=== PATIENT | female | born 1950 | race Caucasian/White ===

== ENCOUNTER → 2016-11-29 | Outpatient (CLI) | payer OTHER ==
[~2016-11-29] MED LIST: ADV250INH INH; ASPI1TAB PO; AUGM500T34 PO; BIOT10005 PO; DURA50DI2 TD; GABA250S6 PO; HYDR1SOL PO; LABE20TAB PO; LEVO25TA5 PO; NORT25CA2 PO; RANI15ELUD PO; VALS1TAB48 PO; ZOFR4SOL PO; [UNRECOGNIZED DRUG - OTHER] TOP
[2016-11-29 13:48] LABS: BASO % 0.3 % (0.0-1.0); EOS # 0.1 K/mm3 (0.0-0.50); LARGE UNSTAINED CELL # 0.1 K/mm3 (0.0-0.4); LARGE UNSTAINED CELL % 2.9 % (0.0-4.0); LYMPH # 0.6 K/mm3 (1.5-4.5); LYMPH % 13.6 % (24.0-44.0); MEAN CORPUSCULAR HEMOGLOBIN 31.5 pg (27.0-33.0); MEAN CORPUSCULAR HGB CONC 33.5 g/dl (32.0-36.5); MEAN CORPUSCULAR VOLUME 93.9 fl (80.0-96.0); MONO # 0.3 K/mm3 (0.0-0.8); MONO % 6.2 % (0.0-5.0); NEUTROPHILS # 3.5 K/mm3 (1.8-7.7); PLATELET COUNT, AUTOMATED 289 k/mm3 (150-450); RED CELL DISTRIBUTION WIDTH 13.6 % (11.5-14.5); WHITE BLOOD COUNT 4.8 K/mm3 (4.0-10.0)
[2016-11-29 13:58] LABS: ALBUMIN/GLOBULIN RATIO 1.14 (1.00-1.93); BILIRUBIN,TOTAL 0.5 MG/DL (0.2-1.0); CALCIUM LEVEL 9.6 MG/DL (8.8-10.2); CREATININE FOR GFR 1.51 MG/DL (0.55-1.02); GLOMERULAR FILTRATION RATE 36.9 (>45); MAGNESIUM LEVEL 1.9 MG/DL (1.8-2.4); TOTAL PROTEIN 7.5 GM/DL (6.4-8.2)
== END ==
LOC: M WUC 10:41
PROVIDERS: ATTEND Family Medicine
DX: C06.9 Malignant neoplasm of mouth, unspecified (principal); D64.9 Anemia, unspecified; E83.42 Hypomagnesemia

== ENCOUNTER 2016-12-02 21:17 | Emergency (ER) | payer OTHER ==
[~2016-12-02] VITALS: Ht 160 cm; Wt 45.4 kg
[~2016-12-02 21:17] MED LIST changes: +BIOT10005 GT; -BIOT10005 PO; +LEVO25TA5 GT; -LEVO25TA5 PO; +ZOFR4SOL GT; -ZOFR4SOL PO
[2016-12-02] MEDS ORDERED: ALBU17IN INH (22:15)
[2016-12-02] MEDS ORDERED: TRAZ50TA4 GT (22:15)
[2016-12-02] MEDS ORDERED: [UNRECOGNIZED DRUG - CODE] GT (22:17)
[2016-12-02] MEDS ORDERED: VITA200016 GT (22:26)
[2016-12-02 23:27] VITALS: BP 143/78
[2016-12-04] MEDS ORDERED: METAL LOCK LOOP XX ONE (03:00)
[2016-12-07] MEDS ORDERED: OSMOLIQ7 GT (10:07)
[2016-12-07] MEDS ORDERED: LABE20TAB GT (10:07)
[2016-12-07] MEDS ORDERED: BENA25CA4 GT (10:07)
[2016-12-07] MEDS ORDERED: [UNRECOGNIZED DRUG - CODE] TOP (10:07)
[2016-12-07] MEDS ORDERED: ACET-71 GT (10:07)
== END 2016-12-02 23:28 | disposition home or self-care (01) ==
LOC: M ED 21:17
DX: Z43.1 Encounter for attention to gastrostomy (principal); Z92.240 Personal history of inhaled steroid therapy; Z79.899 Other long term (current) drug therapy

== ENCOUNTER 2016-12-06 12:40 | Emergency (ER) | payer OTHER ==
[~2016-12-06] VITALS: Ht 160 cm; Wt 45.4 kg
[~2016-12-06 12:40] MED LIST changes: +ALBU17IN INH; +TRAZ50TA4 GT; +VITA200016 GT; +[UNRECOGNIZED DRUG - CODE] GT
[2016-12-06 12:41] VITALS: BP 123/66
[2016-12-07] MEDS ORDERED: OSMOLIQ7 GT (10:07)
[2016-12-07] MEDS ORDERED: LABE20TAB GT (10:07)
[2016-12-07] MEDS ORDERED: [UNRECOGNIZED DRUG - CODE] TOP (10:07)
[2016-12-07] MEDS ORDERED: BENA25CA4 GT (10:07)
[2016-12-07] MEDS ORDERED: ACET-71 GT (10:07)
== END 2016-12-06 16:09 | disposition left against medical advice (07) ==
LOC: M ED 13:27
DX: Z53.21 Procedure and treatment not carried out due to patient leaving prior to being seen by health care provider (principal)

== ENCOUNTER → 2016-12-09 | Outpatient (CLI) | payer OTHER ==
[~2016-12-09] VITALS: Ht 160 cm; Wt 45.4 kg
[~2016-12-09] MED LIST changes: +ACET-71 GT; +BENA25CA4 GT; +LABE20TAB GT; +OSMOLIQ7 GT; +[UNRECOGNIZED DRUG - CODE] TOP
[2016-12-09 12:30] VITALS: BP 111/72
== END ==
LOC: M OPP 12:28 → EDSTATUS 15:30
PROVIDERS: ATTEND Surgery
DX: K94.23 Gastrostomy malfunction (principal); E03.9 Hypothyroidism, unspecified; I10 Essential (primary) hypertension; Z85.810 Personal history of malignant neoplasm of tongue; Z79.899 Other long term (current) drug therapy

== ENCOUNTER → 2017-03-08 | Outpatient (CLI) | payer MEDICARE, OTHER ==
--- NOTE | 2017-03-08 12:14 | REPMRS ---
Patient History The patient states she had a clinical breast exam in 03/2017. Patient is postmenopausal and has history of other cancer at age 64. No known family history of cancer. Benign excisional biopsy of the left breast, 1979. Taking unspecified hormones for 2 years. Digital Woman Screen Mammo: March 08, 2017 - Exam #: [id number] Bilateral CC and MLO view(s) were taken. Technologist: Nini Silva, Technologist Prior study comparison: March 03, 2016, digital woman screen mammo performed at [facility] [facility] [place]. July 06, 2013, digital woman screen mammo performed at [facility] [place]. FINDINGS: The breast tissue is heterogeneously dense. This may lower the sensitivity of mammography. There is a moderate amount of heterogeneously dense fibroglandular tissue which is fairly symmetric. There is no interval development of dominant mass, architectural distortion, or clustered microcalcification typical of malignancy. There has been no change in the appearance of the mammogram from the prior studies. ASSESSMENT: BI-RADS/ACR category 1 mammogram. Negative. Recommendation Routine screening mammogram of both breasts in 1 year (for women over age 40). This mammogram was interpreted with the aid of an FDA-approved computer-aided dectection system. Electronically Signed By: Edgar Moreno MD 03/08/17 [id number]
== END ==
LOC: M WHC 11:05
PROVIDERS: ATTEND Nurse Practitioner Family
DX: Z01.419 Encounter for gynecological examination (general) (routine) without abnormal findings (principal); Z12.31 Encounter for screening mammogram for malignant neoplasm of breast; Z78.0 Asymptomatic menopausal state; Z92.89 Personal history of other medical treatment; Z12.12 Encounter for screening for malignant neoplasm of rectum
CPT/HCPCS: 82270; G0101; G0202

== ENCOUNTER → 2017-03-30 | Outpatient (CLI) | payer MEDICARE, OTHER ==
[~2017-03-30] MED LIST changes: -ACET-71 GT; +ACET1TAB16 GT; -BIOT10005 GT; +BIOT10008 GT; +PRED10TA2 PO; +PRED20TA PO; +PRED5TA PO; +THERTAB GT; +TRAZ50TA11 GT; -TRAZ50TA4 GT; +[UNRECOGNIZED DRUG - CODE] TOP; -[UNRECOGNIZED DRUG - OTHER] TOP
[2017-03-30 17:45] LABS: ALBUMIN 4.1 GM/DL (3.2-5.2); CALCIUM LEVEL 9.5 MG/DL (8.8-10.2); CREATININE FOR GFR 1.45 MG/DL (0.55-1.02); GLOMERULAR FILTRATION RATE 38.7 (>45); PHOSPHORUS LEVEL 3.5 MG/DL (2.5-4.9); POTASSIUM SERUM 4.8 MEQ/L (3.5-5.1)
[2017-03-30 20:00] LABS: BASO % 1.1 % (0.0-1.0); EOS # 0.1 K/mm3 (0.0-0.50); EOS % 2.2 % (0.0-3.0); LARGE UNSTAINED CELL # 0.1 K/mm3 (0.0-0.4); LARGE UNSTAINED CELL % 2.3 % (0.0-4.0); LYMPH # 0.9 K/mm3 (1.5-4.5); LYMPH % 18.6 % (24.0-44.0); MEAN CORPUSCULAR HEMOGLOBIN 32.6 pg (27.0-33.0); MEAN CORPUSCULAR HGB CONC 33.6 g/dl (32.0-36.5); MEAN CORPUSCULAR VOLUME 97.1 fl (80.0-96.0); MONO # 0.3 K/mm3 (0.0-0.8); MONO % 6.9 % (0.0-5.0); NEUTROPHILS # 3.2 K/mm3 (1.8-7.7); PLATELET COUNT, AUTOMATED 344 k/mm3 (150-450); RED CELL DISTRIBUTION WIDTH 13.8 % (11.5-14.5); WHITE BLOOD COUNT 4.6 K/mm3 (4.0-10.0)
== END ==
LOC: M WUC 12:13
PROVIDERS: ATTEND Internal Medicine Nephrology
DX: N18.3 Chronic kidney disease, stage 3 (moderate) (principal); D63.1 Anemia in chronic kidney disease; N25.81 Secondary hyperparathyroidism of renal origin; E55.9 Vitamin D deficiency, unspecified

== ENCOUNTER 2017-04-17 12:20 | Inpatient (IN) | payer MEDICARE, OTHER ==
[~2017-04-17] VITALS: Ht 160 cm; Wt 46.3 kg
[~2017-04-17 12:20] MED LIST changes: -PRED10TA2 PO; -PRED20TA PO; -PRED5TA PO; -THERTAB GT
[2017-04-17] MEDS ORDERED: ASPIRIN 81 MG CHEW TABLET PO ONE (12:30)
[2017-04-17] MEDS ORDERED: THERTAB GT (12:39)
--- NOTE | 2017-04-17 12:56 | REP ---
Chest one-view HISTORY: Chest pain Comparison: 08/12/2010 The lungs are clear. The heart is normal in size. The pulmonary vasculature is normal in appearance. Impression: No acute disease. Signed by Apollo Watkins MD 04/17/2017 12:48 P
[2017-04-17] MEDS ORDERED: IPRATROPIUM 0.5MG/ALBUTEROL 2.5MG INH SOL UD 3ML (DUONEB)(J7620) NEB ONE (13:00)
[2017-04-17] MEDS ORDERED: ALBUTEROL SULFATE 2.5 MG/0.5 ML INH NEB SOLN INH ONE (13:00)
[2017-04-17] MEDS ORDERED: methylPREDNISolone INJ 125 MG/2 ML VIAL (J2930) IV ONE (13:00)
[2017-04-17 13:09] LABS: BASO % 0.2 % (0.0-1.0); EOS % 0.7 % (0.0-3.0); LARGE UNSTAINED CELL # 0.2 K/mm3 (0.0-0.4); LARGE UNSTAINED CELL % 2.7 % (0.0-4.0); LYMPH # 0.7 K/mm3 (1.5-4.5); LYMPH % 5.7 % (24.0-44.0); MEAN CORPUSCULAR HEMOGLOBIN 32.7 pg (27.0-33.0); MEAN CORPUSCULAR HGB CONC 34.3 g/dl (32.0-36.5); MEAN CORPUSCULAR VOLUME 95.3 fl (80.0-96.0); MONO # 0.6 K/mm3 (0.0-0.8); NEUTROPHILS % 83.7 % (36.0-66.0); PLATELET COUNT, AUTOMATED 252 k/mm3 (150-450); RED CELL DISTRIBUTION WIDTH 13.8 % (11.5-14.5); WHITE BLOOD COUNT 8.3 K/mm3 (4.0-10.0)
[2017-04-17] MEDS: NS 1,000 ML IV ONE ×2 (13:29→14:00)
[2017-04-17 13:32] LABS: ALBUMIN 3.4 GM/DL (3.2-5.2); ALBUMIN/GLOBULIN RATIO 0.76 (1.00-1.93); ALKALINE PHOSPHATASE 179 U/L (45-117); ALT/SGPT 57 U/L (12-78); ANION GAP 6 MEQ/L (8-16); AST/SGOT 56 U/L (15-37); BILIRUBIN,DIRECT 0.1 MG/DL (0.0-0.2); BILIRUBIN,TOTAL 0.4 MG/DL (0.2-1.0); BLOOD UREA NITROGEN 39 MG/DL (7-18); CALCIUM LEVEL 9.7 MG/DL (8.8-10.2); CARBON DIOXIDE LEVEL 31 MEQ/L (21-32); CHLORIDE LEVEL 88 MEQ/L (98-107); CREATININE FOR GFR 1.61 MG/DL (0.55-1.02); GLOMERULAR FILTRATION RATE 34.3 (>45); GLUCOSE, FASTING 84 MG/DL (80-110); POTASSIUM SERUM 4.4 MEQ/L (3.5-5.1); SODIUM LEVEL 125 MEQ/L (136-145); TOTAL PROTEIN 7.9 GM/DL (6.4-8.2)
[2017-04-17] MEDS ORDERED: ISOVUE-370 76% 100ML VIAL (Q9967) As Ordered ONE (14:23)
[2017-04-17 16:17] LABS: FREE T4 1.17 NG/DL (0.76-1.46)
[2017-04-17] MEDS ORDERED: MORPHINE 2 MG/ML 1ML SYRINGE IV PRN (16:30)
[2017-04-17] MEDS ORDERED: IPRATROPIUM 0.5MG/ALBUTEROL 2.5MG INH SOL UD 3ML (DUONEB)(J7620) NEB PRN (17:00)
[2017-04-17 17:07] LABS: RETIC HEMOGLOBIN CONTENT CHr 29.1 PG (24-36); RETICULOCYTE ABSOLUTE ADVIA212 58 x10(9)/L (17-77)
[2017-04-17 17:12] LABS: PERCENT SATURATION 5.6 % (13.2-37.4)
[2017-04-17 18:45] VITALS: BP 137/63
--- NOTE | 2017-04-17 19:31 | ECGEPIP ---
Stationary ECG Study [facility] - ED Test Date: 2017-04-17 Pat Name: SOHEILA WORRELL Department: Room: - Gender: F Environmental Conflict Manager: joseph : 1950 Requested By: Pierce Mcgee Order Number: [id number] Reading MD: Pierce Mcgee Measurements Intervals [place] Rate: 81 P: 58 NH: 132 QRS: 16 QRSD: 97 T: 10 QT: 360 QTc: 419 Interpretive Statements SINUS RHYTHM LOW QRS VOLTAGE IN EXTREMITY LEADS DELAYED R WAVE PROGRESSION NO PRIOR ECG FOR COMPARISON Electronically Signed On 04-17-2017 19:30:53 EDT by Pierce Mcgee
[2017-04-17] MEDS: IPRATROPIUM 0.5MG/ALBUTEROL 2.5MG INH SOL UD 3ML (DUONEB)(J7620) NEB SCH (20:00)
[2017-04-17 20:23] LABS: ANION GAP 8 MEQ/L (8-16); BLOOD UREA NITROGEN 43 MG/DL (7-18); CALCIUM LEVEL 8.5 MG/DL (8.8-10.2); CARBON DIOXIDE LEVEL 27 MEQ/L (21-32); CHLORIDE LEVEL 87 MEQ/L (98-107); CREATININE FOR GFR 1.72 MG/DL (0.55-1.02); GLOMERULAR FILTRATION RATE 31.8 (>45); GLUCOSE, FASTING 325 MG/DL (80-110); POTASSIUM SERUM 4.4 MEQ/L (3.5-5.1); SODIUM LEVEL 122 MEQ/L (136-145)
[2017-04-17] MEDS: methylPREDNISolone INJ 125 MG/2 ML VIAL (J2930) IV SCH (20:32)
[2017-04-17] MEDS: HEPARIN SOD (PORCINE) 5000 UNITS/ML VIAL SC SCH (20:33)
[2017-04-17 20:46] VITALS: BP 111/67
[2017-04-17] MEDS: LABETALOL 200 MG TAB GT SCH (20:47)
[2017-04-17] MEDS: traZODone 50 MG TAB GT SCH (20:48)
[2017-04-17] MEDS: diphenhydrAMINE 12.5MG/5ML ELIXIR UDC GT SCH (20:49)
[2017-04-17] MEDS: ACETAMINOPH W/CODEINE #3 TAB UD GT PRN (20:49)
--- NOTE | 2017-04-17 21:39 | ECGEPIP ---
Stationary ECG Study [facility] Test Date: 2017-04-17 Pat Name: SOHEILA WORRELL Department: Room: [facility] [place] Gender: F Dye Expert: martha : 1950 Requested By: LUIS ALBERTO DALEY Order Number: [id number] Reading MD: Chaka Jimenez Measurements Intervals [place] Rate: 77 P: 50 ND: 140 QRS: 16 QRSD: 96 T: 22 QT: 393 QTc: 446 Interpretive Statements SINUS RHYTHM LOW QRS VOLTAGE NO CHANGE FROM EARLIER THE SAME DAY Electronically Signed On 04-17-2017 21:39:20 EDT by Chaka Jimenez
--- NOTE | 2017-04-17 21:59 | HPE ---
DATE OF ADMISSION: 04/17/2017 PRIMARY CARE PROVIDER: Dr. Rosas Carreno TOMATO GRADER: Dr. Wan CHIEF COMPLAINT: The patient presented to the emergency room with chest tightness and back tightness in the last 24 to 48 hours. She also had some associated cough and shortness of breath. While in the emergency room, she did receive nebulizer treatments and Solu-Medrol and had good improvement in her symptoms; however, she was noted to have a sodium of 125. Although she has had hyponatremia for quite some time, this is lower than expected despite the recent initiation of salt tablets, as such the hospitalist service was called for admission. At the present time, the patient complains of a headache and complains that she has not received her feeding per tube as of yet, but otherwise feels better than when she arrived. She denies any chest pressure or shortness of breath at the present time. PAST MEDICAL HISTORY: 1. Hypertension. 2. Chronic kidney disease, baseline creatinine of approximately 1.5. 3. Osteoarthritis. 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 5. Chronic obstructive pulmonary disease (COPD) documented. No spirometry available. 6. Hypothyroidism. HOME MEDICATIONS: - Ventolin HFA two puffs twice a day as needed for shortness of breath - Advair Diskus 250/50 inhaled twice a day - Polysporin 500/10,000 units topical as needed for redness or irritation - vitamin H - Biotin as per the patient - Zofran 4 mg solution per G tube in the morning - Osmolite 1.2 calories five cans per day - Thermotabs one tablet per G tube at night - Tylenol #3 300/30 one tablet three times a day as needed for pain - Benadryl 25 mg per G tube at night - labetalol 200 mg per G tube twice a day - Synthroid 25 mcg per G tube in the morning - trazodone 50 mg per G tube at night - vitamin D 2000 units per G tube daily SURGICAL HISTORY: Right kidney biopsy, left adrenalectomy due to mass, trach and PEG placement, oral surgery, tubal ligation, colonoscopy. ALLERGIES: The patient has no known drug allergies. SOCIAL HISTORY: She is a former smoker. Denies alcohol. She lives with her and son. FAMILY HISTORY: Noncontributory. REVIEW OF SYSTEMS: Negative other than history of present illness. PHYSICAL EXAMINATION: VITAL SIGNS: Temperature 99.2, pulse 83, respiratory rate 18, blood pressure 103/62, oxygen saturation 99% on room air. GENERAL: She is a slim, cachectic, elderly female sitting up on a stretcher. She does not appear to be in any acute distress. She has no teeth. At times it is difficult to understand what she is saying. She is awake, alert, oriented times three. HEENT: Chronic deformities. Cranial nerves II through XII appear to be grossly intact. She does appear to have some elevated central venous pressure. CARDIOVASCULAR EXAM: S1, S2 regular. I do appreciate abdominal bruit. It is unclear if this is radiating from her cardiac. ABDOMEN: Soft. EXTREMITIES: No clubbing, cyanosis or edema. Prominent veins throughout. LABORATORY STUDIES: WBC 8.3, hemoglobin 9.8, hematocrit 28.7, platelet count 252. Chemistry panel: Sodium 125, potassium 4.4, chloride 88, bicarbonate 31, BUN 39 , creatinine 1.6, AST is slightly elevated at 56, ALT within normal limits, BNP is elevated at 502. She has a TSH within normal limits. One set of blood cultures is drawn and pending. The patient did have a CT angiography of her chest, which revealed no evidence of pulmonary embolism, bibasilar atelectasis/infiltrate. ASSESSMENT AND PLAN: This is a 56-year-old female who initially presented for chest pain, which now appears to have resolved. She was found to have worsening of chronic hyponatremia. 1. Hyponatremia. The etiology remains unclear. She has undergone outpatient evaluation with nephrology. I did contact Dr. Wan, who has agreed to see the patient in consultation. For the time being, I will check urine osmolality, serum osmolality, urine sodium, UA, random cortisol added on to her earlier set of blood work. TSH. 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 I will hold off on providing her any further IV fluids. 2. Chest pain and shortness of breath. This did resolve with nebulizer treatment. She is saturating very well on room air and comfortable, even when lying flat. My suspicion for congestive heart failure (CHF) or diastolic dysfunction is less; however, given her presentation, we will check an echocardiogram. We will trend her cardiac enzymes. We will also check EKG. I think that it is more likely that she may have had some mild decompensation of her documented history of COPD. As such, she has improved on nebulizer treatments and Solu-Medrol, I will continue her on this. 3. 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 She has a PEG tube. Continue with her tube feeds via PEG. She is nothing by mouth. 4. Osteoarthritis. Continue with her chronic pain regimen. 5. Hypertension. Continue with labetalol. 6. Hypothyroidism. We will check a TSH. Continue with Synthroid. 7. Vitamin D deficiency. Continue supplementation. 8. Insomnia. Continue with trazodone and Benadryl. 9. Deep vein thrombosis (DVT) prophylaxis. She will be on heparin. DISPOSITION: The patient is admitted to the progressive care unit (PCU) to Dr. Cardozo's service, who will continue following the patient at 7:[address] [facility] CENTERBaljeet
--- NOTE | 2017-04-17 22:24 | CR ---
DATE OF CONSULTATION: 04/17/2017 REQUESTING PHYSICIAN: Vonnie Gautam MD. REASON FOR CONSULTATION: Hyponatremia. HISTORY OF PRESENT ILLNESS: Ms. 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 She had a tracheostomy tube which has been now closed and she still has a percutaneous endoscopic gastrostomy (PEG) tube for feeding. History of chronic obstructive pulmonary disease (COPD) and hypothyroidism. She also has history of left adrenalectomy due to adrenal mass in the past. She was brought to the emergency room today due to chest discomfort and congestion. She felt like she has flu-like symptoms. She had been seen recently in the office and her sodium level was 127. She was started on oral sodium chloride tablets due to possibility of syndrome of inappropriate secretion of antidiuretic hormone (SIADH). She does need tube feeding and in any event, she is admitted with sodium level of 125 today and a nephrology consultation was requested. The patient is seen this afternoon. PAST MEDICAL AND SURGICAL HISTORY Significant for: 1. Longstanding hypertension. 2. History of COPD with heavy smoking in the past. 3. Hypothyroidism. 4. 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 5. History of stage III chronic kidney disease. 6. History of squamous cell carcinoma of her tongue, status post tongue resection, status post feeding tube placement and tracheostomy. MEDICATIONS: Current medications include: - vitamin D 2000 units daily - levothyroxine 25 mcg daily - Solu-Medrol 60 mg every eight hours - Benadryl 10 mg at bedtime - labetalol 200 mg twice a day - Desyrel 50 mg at bedtime - heparin 5000 units every 12 hours - DuoNeb every six hours as needed for dyspnea - morphine 2 mg as needed for severe pain ALLERGIES: The patient has no known drug allergies. PERSONAL AND SOCIAL HISTORY: The patient is a former smoker. She denies any alcohol or drug use. FAMILY HISTORY: Negative for lung cancer or kidney problems. REVIEW OF SYSTEMS: She denies any fever or chills. Her weight has been stable. Ears, nose and eyes are unremarkable. Her throat is significant for history of tongue resection. She has difficulty with swallowing food so she has been dependent on her PEG tube for feeding. She does drink coffee and liquids by mouth. Cardiovascular system is significant for hypertension. She denies any chest pain or palpitations. Respiratory system is significant for COPD. There is no history of hemoptysis or pleuritic type of chest pain. Gastrointestinal (GI) system is as per history of present illness. She is dependent on her PEG tube for feeding. She denies any vomiting or diarrhea. There is no history of rectal bleeding or black colored stools. Genitourinary () system is negative for dysuria or hematuria. Endocrine system is negative for diabetes. She does have hypothyroidism. She has prior history of left adrenalectomy. Psychosocial system significant for depression. She also has a history of anxiety. Neurological system is negative for seizures or stroke. Hematological system is negative for anticoagulation. She has no history of easy bruising or excessive bleeding. Skin is negative for rash or ulcers. Musculoskeletal system is negative for leg edema or significant arthritis. PHYSICAL EXAMINATION: The patient is awake and alert and at her baseline mentation. Temperature 98.2 degrees Fahrenheit, heart rate 80 per minute and respiratory rate 18 per minute. Blood pressure 137/63 mmHg and oxygen saturation 95% on room air. Head is atraumatic. Neck is supple and without jugular venous distention (JVD) or thyroid enlargement. Her tracheostomy has been closed. She has only partial tongue tissue. There is no oral thrush or ulcers. She is edentulous. Pupils equal and reactive to light and sclerae are anicteric. Heart exam reveals regular S1, S2. There is no pericardial friction rub. Lungs clear to auscultation at present. Abdomen soft and nontender. PEG tube is in place. There is no palpable organomegaly. Extremities have no cyanosis or clubbing. Skin has no rash or ulcers. Neurologically she is awake, alert and oriented times three. LABORATORY DATA WBC count 8.3, hemoglobin 9.8 and hematocrit 28.7. Platelets 252. Sodium 125, potassium 4.4. Chloride 88, CO2 31, BUN 39 and creatinine 1.61. Glucose 84 and calcium 9.7. Total protein 7.9 and albumin 3.9. TSH level is 2.37 and free T4 1.17. Cortisol level is pending. Urine studies have been ordered but not sent as yet. Chest x-ray reviewed independently negative for any effusion or infiltrate. CT angiogram of chest is done which to my assessment did not show any evidence of pulmonary embolus. An official report still pending. PROBLEMS: 1. Hyponatremia. The patient has complicated situation due to her need for tube feeding and dependent on liquids for all her nutritional needs. She is currently using Osmolite 1.25 cans per day with a total volume of about 1200 mL, and in addition she drinks at least two cups of coffee and free water through the day. It is possible that she has syndrome of inappropriate secretion of antidiuretic hormone (SIADH) as cause of her hyponatremia. She does have history of adrenal resection in the past so we need to make sure that her adrenals are sufficient. A serum cortisol level is pending at present. We will need to limit her fluid intake to about 7459-7101 per day. We will need to talk to the dietitian tomorrow and get a different formula for her nutrition. I feel that if we can use 2.0 or 1.5 calories per mL, we can probably cut down the total volume of her tube feeding and then limit her total fluid intake to about 1200 or 1400 mL per day and monitor her electrolytes. Other option would be to add sodium chloride tablets and a small amount of diuretic if fluid restriction alone does not help to correct her hyponatremia. At this point, we are still waiting for urine studies in order to make a definitive diagnosis of SIADH which seems clinically more likely. 2. Hypertension. Her blood pressure is well controlled on current antihypertensive medications. She has not been on diuretic as outpatient. 3. Anemia. Her anemia seems to be worse than her prior baseline. We need to get iron studies and then consider possible use of Procrit if she has adequate iron stores. In March her hemoglobin was 11.2, so this is worse which could be related to either hemodilution or blood loss. She had iron deficiency on recent labs with total iron level of only 14 and saturation 5.6%. Liquid iron can be added to her tube feeds and we will order that. I do not feel that at this point she will benefit from Procrit injections. I thank you for involving me in the care of Ms. Dhaliwal. I will be off tomorrow and Dr. Howell will followup on her case.
[2017-04-17] MEDS: FERROUS SULFATE 300MG/5ML UDC LIQUID PEG SCH (23:50)
[2017-04-17 23:57] VITALS: BP 107/63
[2017-04-18] MEDS: IPRATROPIUM 0.5MG/ALBUTEROL 2.5MG INH SOL UD 3ML (DUONEB)(J7620) NEB SCH ×4 (01:43→20:40)
[2017-04-18 05:23] VITALS: BP 124/57
[2017-04-18] MEDS: methylPREDNISolone INJ 125 MG/2 ML VIAL (J2930) IV SCH ×2 (05:52→16:39)
[2017-04-18 06:12] LABS: OSMOLALITY URINE 309 MOSM/KG (500-800)
[2017-04-18 06:21] LABS: ANION GAP 9 MEQ/L (8-16); BLOOD UREA NITROGEN 49 MG/DL (7-18); CALCIUM LEVEL 9.7 MG/DL (8.8-10.2); CARBON DIOXIDE LEVEL 28 MEQ/L (21-32); CHLORIDE LEVEL 91 MEQ/L (98-107); CREATININE FOR GFR 1.46 MG/DL (0.55-1.02); GLOMERULAR FILTRATION RATE 38.4 (>45); GLUCOSE, FASTING 136 MG/DL (80-110); POTASSIUM SERUM 4.8 MEQ/L (3.5-5.1); SODIUM LEVEL 128 MEQ/L (136-145)
[2017-04-18] MEDS: LEVOTHYROXINE 25MCG TABLET (0.025MG) GT SCH (06:38)
[2017-04-18] MEDS: ACETAMINOPH W/CODEINE #3 TAB UD GT PRN ×3 (06:38→21:16)
--- NOTE | 2017-04-18 06:38 | REP ---
CT ANGIO CHEST: HISTORY: Pleuritic chest pain. CONTRAST: Isovue 370, 75 mL. Comparison 03/08/2008. There are no filling defects in the main, right and pulmonary arteries or their branches. Small areas of atelectasis or infiltrate are present in the lower lobes. There is no pleural effusion. There is no mediastinal mass. The heart is normal in size. Degenerative change is present in the thoracic spine. A gastrostomy tube is present in the stomach. A 1.1 cm hypodensity is present in the liver. This most likely represents a cyst. Two cysts measuring 2.9 and 3.2 cm are present in the left kidney. IMPRESSION: 1. There is no pulmonary embolism. 2. There are small areas of atelectasis or infiltrate in the lower lobes. 3. 1.1 cm liver cyst. 4. There are two cysts in the left kidney. Signed by Apollo Watkins MD 04/18/2017 08:10 A
[2017-04-18 08:00] VITALS: BP 119/53
[2017-04-18] MEDS ORDERED: SODIUM CHLORIDE 1 GM TAB PO SCH (09:00)
[2017-04-18] MEDS: FERROUS SULFATE 300MG/5ML UDC LIQUID PEG SCH (09:51)
[2017-04-18] MEDS: HEPARIN SOD (PORCINE) 5000 UNITS/ML VIAL SC SCH ×2 (09:51→20:56)
[2017-04-18] MEDS: VITAMIN D 1,000 INTERNATIONAL UNITS TABLET GT SCH (09:51)
[2017-04-18] MEDS: LABETALOL 200 MG TAB GT SCH ×2 (09:53→20:57)
--- NOTE | 2017-04-18 09:58 | IPNPDOC ---
Subjective Date Seen The patient was seen on 04/18/17. Subjective Chief Complaint/HPI The patient is a 66-year-old female admitted with a reason for visit of Hyponatremia. General: Denies: Chills, Night Sweats Constitutional: Denies: Chills Pulmonary: Denies: Dyspnea, Cough Cardiovascular: Denies: Chest Pain, Palpitations, Orthopnea Gastrointestinal: Denies: Nausea, Vomiting Neurological: Denies: Weakness Objective Physical Examination General Exam: Positive: Alert, Cooperative, No Acute Distress Chest Exam: Positive: Normal air movement, Wheezing, Diminished, Negative: Rales, Rhonchi Heart Exam: Positive: Rate Normal, Normal S1, Normal S2, Negative: Murmurs, Rubs Telemetry: Positive: No significant arrhythmia Abdomen Exam: Positive: Normal bowel sounds, Soft, Negative: Tenderness, Hepatospenomegaly Extremity Exam: Negative: Clubbing, Cyanosis, Edema Psych Exam: Positive: Mental status NL Assessment /Plan Problems (1) Hyponatremia Status: Acute Response to Treatment: Stable Problem Text: etiology unclear nephro consulted-appreciate their recommendations urine osmo 309 urine na normal U/A unremarkable for infection random cortisol pending TSH normal hold on IV fluids (2) Squamous cell carcinoma of floor of mouth Status: Chronic Response to Treatment: Stable Problem Text: currently has PEG tube c/w tube feeds via PEG pt is NPO (3) HTN (hypertension) Response to Treatment: Stable Problem Text: 119/53 stable c/w labetolol (4) Hypothyroid Status: Chronic Response to Treatment: Stable Problem Text: TSH normal c/w synthroid (5) Chest pain Status: Acute Response to Treatment: Stable Problem Text: states CP is better today did get better one day ago with nebulizer treatment saturating 97% on room air at and is comfortable c/w steroid treatment (6) DVT prophylaxis Status: Acute Response to Treatment: Stable Problem Text: scd abdon Plan/VTE VTE Prophylaxis Ordered?: Yes VS, I&O, 24H, Fishbone Vital Signs/I&O Vital Signs Date Time Temp Pulse Resp B/P (MAP) Pulse Ox O2 Delivery O2 Flow Rate FiO2 04/18/17 08:00 97.7 74 18 119/53 (75) 97 Room Air I&O- Last 24 Hours up to 6 AM 04/18/17 06:00 Intake Total 774 ml Output Total 550 ml Balance 224 ml Laboratory Data 24H LABS Laboratory Tests 2 04/17/17 13:01: White Blood Count 8.3, Red Blood Count 3.01L, Hemoglobin 9.8L, Hematocrit 28.7L , Mean Corpuscular Volume 95.3, Mean Corpuscular Hemoglobin 32.7, Mean Corpuscular Hemoglobin Concent 34.3, Red Cell Distribution Width 13.8, Platelet Count 252, Neutrophils (%) (Auto) 83.7H, Lymphocytes (%) (Auto) 5.7L, Monocytes (%) (Auto) 7.0H, Eosinophils (%) (Auto) 0.7, Basophils (%) (Auto) 0.2, Neutrophils # (Auto) 7.0, Lymphocytes # (Auto) 0.7L, Monocytes # (Auto) 0.6, Eosinophils # (Auto) 0.0, Basophils # (Auto) 0.0, Large Unclassified Cells % 2.7 , Large Unclassified Cells # 0.2, Absolute Reticulocyte Count 58, Percent Reticulocyte Count 1.80H, Reticulocyte Hgb Content (CHr) 29.1, Anion Gap 6L, Glomerular Filtration Rate 34.3L, Osmolality 279L, Lactic Acid Level 0.6, Calcium Level 9.7, Iron Level 14L, Total Iron Binding Capacity 250, Transferrin % Saturation 5.6L, Ferritin 771H, Aspartate Amino Transf (AST/SGOT) 56H, Alanine Aminotransferase (ALT/SGPT) 57, Alkaline Phosphatase 179H, Total Bilirubin 0.4, Direct Bilirubin 0.1, Total Creatine Kinase 66, Creatine Kinase MB 1.0, Creatine Kinase MB Relative Index 1.51, Troponin I < 0.02, B-Type Natriuretic Peptide 502H, Total Protein 7.9, Albumin 3.4, Albumin/Globulin Ratio 0.76L, Thyroid Stimulating Hormone (TSH) 2.370, Free Thyroxine 1.17 04/17/17 19:37: Anion Gap 8, Glomerular Filtration Rate 31.8L, Calcium Level 8.5L, Troponin I < 0.02, Blood Urea Nitrogen 43H, Creatinine 1.72H, Sodium Level 122L, Potassium Level 4.4, Chloride Level 87L, Carbon Dioxide Level 27 04/18/17 00:49: Troponin I < 0.02 04/18/17 05:27: Anion Gap 9, Glomerular Filtration Rate 38.4L, Calcium Level 9.7, Troponin I < 0.02, Blood Urea Nitrogen 49H, Creatinine 1.46H, Sodium Level 128L, Potassium Level 4.8, Chloride Level 91L, Carbon Dioxide Level 28, C-Reactive Protein, Quantitative 14.10H 04/18/17 05:48: Urine Appearance CLEAR, Urine Color YELLOW, Urine pH 6.0, Urine Specific Widen 1.021, Urine Protein 1+H, Urine Glucose (UA) NEGATIVE, Urine Ketones NEGATIVE, Urine Urobilinogen 0.2, Urine Bilirubin NEGATIVE, Urine Leukocyte Esterase NEGATIVE, Urine Blood NEGATIVE, Urine Nitrite NEGATIVE, Urine WBC (Auto ) 0, Urine RBC (Auto) 0, Urine Hyaline Casts (Auto) 0, Urine Bacteria (Auto) NEGATIVE, Urine Squamous Epithelial Cells 1, Urine Sperm (Auto) , Urine Random Osmolality 309L, Urine Random Creatinine 40.2, Urine Random Sodium < 10 CBC/BMP Laboratory Tests 04/17/17 13:01 Red Blood Count 3.01 L, Mean Corpuscular Volume 95.3, Mean Corpuscular Hemoglobin 32.7, Mean Corpuscular Hemoglobin Concent 34.3, Red Cell Distribution Width 13.8, Neutrophils (%) (Auto) 83.7 H, Lymphocytes (%) (Auto) 5.7 L, Monocytes (%) (Auto) 7.0 H, Eosinophils (%) (Auto) 0.7, Basophils (%) ( Auto) 0.2, Neutrophils # (Auto) 7.0, Lymphocytes # (Auto) 0.7 L, Monocytes # ( Auto) 0.6, Eosinophils # (Auto) 0.0, Basophils # (Auto) 0.0 04/17/17 19:37 Calcium Level 8.5 L 04/18/17 05:27 Calcium Level 9.7 Microbiology Microbiology 04/17/17 Blood Culture, Received Pending 04/17/17 Respiratory Virus Panel (PCR) (CARLOS) - Final, Complete GME ATTESTATION GME ATTESTATION My preceptor for this patient encounter was physically present in the building during the encounter and was fully available. As needed, all aspects of the patient interview, examination, medical decision making process, and medical care plan development were reviewed and approved by the preceptor. Preceptor is aware and concurs with the plan as stated in the body of this note and will attest to such by his/her cosignature. TITUS RIZVI DO Apr 18, 2017 09:58
[2017-04-18 12:00] VITALS: BP 118/60
[2017-04-18] MEDS: LIDOCAINE 5% (LIDODERM) PATCH TD SCH (16:25)
[2017-04-18 17:30] VITALS: BP 130/63
[2017-04-18] MEDS: traZODone 50 MG TAB GT SCH (20:56)
[2017-04-18] MEDS: diphenhydrAMINE 12.5MG/5ML ELIXIR UDC GT SCH (20:56)
[2017-04-18] MEDS: IRON SUCROSE 100MG 5ML VIAL (J1756 PER 1MG) IV SCH (20:57)
[2017-04-18] MEDS ORDERED: **NOTE PATIENT COMMENT** MISC XX SCH (21:00)
[2017-04-18 22:00] VITALS: BP 120/73
--- NOTE | 2017-04-18 22:26 | ECHO ---
DATE OF PROCEDURE: 04/18/2017 DATE OF : 1950 AGE: 66 REFERRING PROVIDER: Dr. Vonnie Gautam PATIENT LOCATION: Room 3213 REASON FOR THE ECHOCARDIOGRAM: Chest pain, unspecified. 2D MEASUREMENTS: IVS: 0.78 cm LV: 4.9 cm LVPW: 0.79 cm LA: 3.4 cm Aorta: 2.0 cm IVC: 1.4 cm DOPPLER MEASUREMENTS: Peak velocity across the aortic valve: 1.3 m/s Peak velocity across the LVOT: 1.1 m/s Mitral E: 1.2, Mitral A: 0.72 with a ratio of 1.7 Maximum tricuspid valve velocity: 2.6 m/s 2D COMMENTS: 1. Normal left ventricular size, wall thickness and normal global left ventricular systolic function. The estimated left ventricular ejection fraction is 65-70%. 2. Normal left atrium. Normal right atrium and right ventricle. 3. The atrial septum appeared to be normal without evidence of defect or shunt. 4. Normal aortic root. 5. Trace pericardial effusion noted, no evidence of cardiac tamponade. 6. Minimally calcified aortic valve with normal leaflet excursion. Mildly calcified mitral annulus with normal anterior mitral valve leaflet motion. Normal tricuspid valve and pulmonic valve. The proximal pulmonary artery branches were not well visualized. 7. The inferior vena cava was normal in size, central venous pressure is most likely normal. DOPPLER: It detects trace aortic regurgitation, mild mitral regurgitation and moderate tricuspid regurgitation. The calculated pulmonary artery systolic pressure varied between 30-40 mmHg. Assessment of the left ventricular diastolic function was normal. IMPRESSION: 1. Normal global left ventricular systolic and diastolic function. 2. Aortic valve sclerosis with trace aortic regurgitation. 3. Mitral annulus calcification with mild mitral regurgitation. 4. Moderate tricuspid regurgitation with mild pulmonary hypertension. 5. Trace pericardial effusion noted, no evidence of cardiac tamponade. [facility]
--- NOTE | 2017-04-18 22:55 | IPN ---
DATE: 04/18/2017 SUBJECTIVE: Patient was seen and examined at the bedside today in the morning. She was getting ready to get her tube feed when I saw her this morning. She is awake and alert. Renal function is stable. Creatinine is down to 1.4. Sodium is stable at 128. REVIEW OF SYSTEMS: Patient denies any fevers, chills, rigors, headache, nausea, vomiting, chest pain, shortness of breath, pain in abdomen, constipation, or diarrhea. Rest of review of systems is negative. OBJECTIVE: Vital signs: Temperature is 98.2 degrees Fahrenheit, blood pressure is 118/60, pulse is 72, respiratory rate of 18, saturating 96% on room air. Intake and output: Urine output recorded is 1.4 liters overnight. Patient is 464 mL negative since overnight. Weight in the bed scale is 45.5 kg. PHYSICAL EXAMINATION: GENERAL: Patient is awake, alert, oriented times three, sitting in the bed. No apparent distress. HEAD AND NECK: Extraocular muscles intact. Pupils equally round and reactive to light. Mucous membranes are moist. Neck is supple. There is no jugular venous distention (JVD). Patient has partial tongue resection, but she is able to communicate. CARDIOVASCULAR: S1, S2, regular rate. No murmur, rub, or gallop. RESPIRATORY: Chest is clear to auscultation bilaterally. Bilateral equal air entry. No rales or rhonchi. ABDOMEN: Soft. Positive bowel sounds. Nontender. No ascites. No organomegaly. Patient has a percutaneous endoscopic gastrostomy (PEG) tube in the epigastrium. MUSCULOSKELETAL: There is no cyanosis or clubbing of the extremities. Pulses are 2+. CENTRAL NERVOUS SYSTEM: No focal neurological deficit. Power is 5/5 in all extremities. LABORATORY REVIEW: CBC showed WBC of 8.3, hemoglobin was 9.8 on CBC from yesterday. Today morning, BMP showed sodium 128, potassium 4.8, chloride 91, bicarbonate 28 , BUN 49, creatinine 1.4; it was 1.7 yesterday. Calcium is 9.7. Microbiology: Respiratory viral panel is negative. IMAGING: CT angiogram of the chest was done yesterday, which was negative for pulmonary embolism (PE). There are small areas of atelectasis or infiltrate in the lower lobes. CURRENT INPATIENT MEDICATIONS: Patient's medications were all reviewed by me. [facility] has been changed to 40 mg intravenous (IV) every 12 hours. There is no other change in the medications, except that I have started the patient on sodium chloride 1 gram via PEG tube daily. ASSESSMENT AND PLAN: 1. Hyponatremia. Patient is on PEG tube feeds. She takes all of her diet as liquid diet. I have changed her diet to Jevity 1.5 four cans daily through the PEG tube. She needs to decrease her daily liquid intake to maximum 1800 mL per day. Patient got her morning cortisol checked, which was 27, which is within the acceptable limit. Sodium level is appropriately improving. It is up to 128 now. I have also started the patient on sodium chloride tablet 1 gram via PEG tube daily. 2. Hypertension. Blood pressure is acceptable at this time. Continue current dose of labetalol 200 mg twice a day. 3. Anemia. Patient got iron studies done. She has iron deficiency. I am going to give the patient Venofer 500 mg IV. Patient most likely has poor oral iron intake because of her tube feeds. I am also going to start the patient on multivitamins. MTDD
[2017-04-19] MEDS: IPRATROPIUM 0.5MG/ALBUTEROL 2.5MG INH SOL UD 3ML (DUONEB)(J7620) NEB SCH ×3 (02:00→14:33)
[2017-04-19] MEDS: LEVOTHYROXINE 25MCG TABLET (0.025MG) GT SCH (05:38)
[2017-04-19] MEDS: methylPREDNISolone INJ 125 MG/2 ML VIAL (J2930) IV SCH (05:38)
[2017-04-19 06:00] VITALS: BP 127/68
[2017-04-19 06:22] LABS: CALCIUM LEVEL 10.1 MG/DL (8.8-10.2); CREATININE FOR GFR 1.48 MG/DL (0.55-1.02); GLOMERULAR FILTRATION RATE 37.8 (>45); POTASSIUM SERUM 4.1 MEQ/L (3.5-5.1)
[2017-04-19 09:00] VITALS: BP 114/61
[2017-04-19] MEDS ORDERED: DOCUSATE SODIUM 100 MG CAP PO SCH (09:00)
[2017-04-19] MEDS ORDERED: SODIUM CHLORIDE 1 GM TAB PEG SCH (09:00)
[2017-04-19] MEDS ORDERED: MULTIVITAMIN/MINERALS LIQUID 15ML ORAL SYRINGE PO SCH (09:00)
[2017-04-19] MEDS ORDERED: FERROUS SULFATE 300MG/5ML UDC LIQUID PEG SCH (09:00)
[2017-04-19] MEDS: LABETALOL 200 MG TAB GT SCH (09:00)
[2017-04-19] MEDS ORDERED: DOCUSATE SOD LIQ 100MG/10ML UDC GT SCH (09:00)
[2017-04-19] MEDS: IRON SUCROSE 100MG 5ML VIAL (J1756 PER 1MG) IV SCH (09:21)
[2017-04-19] MEDS: VITAMIN D 1,000 INTERNATIONAL UNITS TABLET GT SCH (09:21)
[2017-04-19] MEDS: HEPARIN SOD (PORCINE) 5000 UNITS/ML VIAL SC SCH (09:22)
[2017-04-19] MEDS: LIDOCAINE 5% (LIDODERM) PATCH TD SCH (09:22)
[2017-04-19 09:44] LABS: ALBUMIN 3.2 GM/DL (3.2-5.2); MAGNESIUM LEVEL 2.5 MG/DL (1.8-2.4); PHOSPHORUS LEVEL 4.2 MG/DL (2.5-4.9)
--- NOTE | 2017-04-19 10:59 | IPNPDOC ---
Subjective Date Seen The patient was seen on 04/19/17. Subjective Chief Complaint/HPI The patient is a 66-year-old female admitted with a reason for visit of Hyponatremia. General: Denies: Chills Constitutional: Denies: Chills, Fever Eyes: Denies: Pain, Vision change Skin: Denies: Lesions Pulmonary: Denies: Dyspnea, Cough, Pleuritic Chest Pain Cardiovascular: Denies: Chest Pain, Palpitations, Orthopnea Gastrointestinal: Denies: Nausea, Vomiting, Abdominal Pain, Diarrhea, Constipation Genitourinary: Denies: Dysuria Neurological: Denies: Weakness Psych: Reports: Mood Normal Objective Physical Examination General Exam: Positive: Alert, Cooperative, No Acute Distress Chest Exam: Positive: Normal air movement, Wheezing, Diminished, Negative: Rales, Rhonchi Heart Exam: Positive: Rate Normal, Normal S1, Normal S2, Negative: Murmurs, Rubs Telemetry: Positive: No significant arrhythmia Abdomen Exam: Positive: Normal bowel sounds, Soft, Negative: Tenderness, Hepatospenomegaly Extremity Exam: Negative: Clubbing, Cyanosis, Edema Psych Exam: Positive: Mental status NL Assessment /Plan Problems (1) Hyponatremia Status: Acute Response to Treatment: Stable Problem Text: nephro consulted-appreciate their recommendations dietary has recommended she continue her home regime w/ tube feeds of 1.2 5 cans daily and stop free water flushes c/w 1800 mL fluid restriction U/A unremarkable for infection random cortisol pending 27.1-per nephro note-acceptable TSH normal hold on IV fluids dietary is seeing pt today trazodone stopped (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 however pt states she recently had outpt speech eval in [place] and she is OK to drink coffee, have d/c speech. eval. (3) HTN (hypertension) Response to Treatment: Stable Problem Text: 119/53 stable c/w labetolol (4) Hypothyroid Status: Chronic Response to Treatment: Stable Problem Text: TSH normal c/w synthroid (5) Chest pain Status: Acute Response to Treatment: Stable Problem Text: No CP today on exam did get better with nebulizer treatment saturating 96% on room air at and is comfortable c/w steroid treatment (6) DVT prophylaxis Status: Acute Response to Treatment: Stable Problem Text: scd abdon Plan/VTE VTE Prophylaxis Ordered?: Yes VS, I&O, 24H, Fishbone Vital Signs/I&O Vital Signs Date Time Temp Pulse Resp B/P (MAP) Pulse Ox O2 Delivery O2 Flow Rate FiO2 04/19/17 10:47 Room Air 04/19/17 09:00 71 114/61 04/19/17 07:29 16 04/19/17 06:00 97.7 96 I&O- Last 24 Hours up to 6 AM 04/19/17 06:00 Intake Total 1064 ml Output Total 1700 ml Balance -636 ml Laboratory Data 24H LABS Laboratory Tests 2 04/19/17 05:34: Anion Gap 10, Glomerular Filtration Rate 37.8L, Blood Urea Nitrogen 57H, Creatinine 1.48H, Sodium Level 132L, Potassium Level 4.1, Chloride Level 95L, Carbon Dioxide Level 27, Calcium Level 10.1, Phosphorus Level 4.2, Magnesium Level 2.5H, C-Reactive Protein, Quantitative 9.61H, Albumin 3.2 CBC/BMP Laboratory Tests 04/19/17 05:34 Calcium Level 10.1 Microbiology Microbiology 04/17/17 Blood Culture - Preliminary, Resulted No growth after 24 hours . All specim... 04/17/17 Respiratory Virus Panel (PCR) (CARLOS) - Final, Complete GME ATTESTATION GME ATTESTATION My preceptor for this patient encounter was physically present in the building during the encounter and was fully available. As needed, all aspects of the patient interview, examination, medical decision making process, and medical care plan development were reviewed and approved by the preceptor. Preceptor is aware and concurs with the plan as stated in the body of this note and will attest to such by his/her cosignature. TITUS RIZVI DO Apr 19, 2017 10:58 REMBERTO DICKSON Apr 20, 2017 17:07
--- NOTE | 2017-04-19 12:53 | IPN ---
DATE: 04/19/2017 SUBJECTIVE: The patient was seen and examined at the bedside this morning. She is tolerating the Jevity 1.5 tube feeds. She is awake and alert and she does not have any active complaints. Sodium level is improving. It is up to 132 now. Renal function is stable. Creatinine is stable at 1.4. REVIEW OF SYSTEMS: The patient denies any fever, chills, rigors, headache, nausea, vomiting, chest pain, shortness of breath, pain in the abdomen, constipation or diarrhea. The rest of the review of systems is negative. OBJECTIVE: VITAL SIGNS: Temperature is 97.7, degrees Fahrenheit, blood pressure is 114/61, pulse is 71, respiratory rate of 16, saturating 96% in room air. Intake and output: Urine output recorded as 2 liters yesterday, 650 mL so far today since overnight. Weight on the bed scale is 46.3 kg. GENERAL: The patient is awake, alert, oriented times three, sitting in bed in no apparent distress. HEAD and NECK EXAM: Extraocular muscles intact. Pupils equal, round, and reactive to light. Mucous membranes are moist. The patient has a partial tongue dissection. CARDIOVASCULAR: S1, S2, regular rate. No murmur, rub, or gallop. RESPIRATORY: Chest is clear to auscultation bilaterally. Bilaterally good air entry. No rales or rhonchi. ABDOMEN: Soft. Positive bowel sounds. Nontender. No ascites. No organomegaly. The patient has a percutaneous endoscopic gastrostomy (PEG) tube in the epigastrium. MUSCULOSKELETAL: No clubbing or cyanosis of the extremities. Pulses are 2+. APPLIED BEHAVIOR SCIENCE SPECIALIST: No focal neurological deficit. Power is 5/5 in all extremities. LAB REVIEW: BMP showed sodium 132, potassium 4.1, chloride 95, bicarbonate 27, BUN 57, creatinine 1.4. Phosphorus 4.2, magnesium 2.5, calcium 10.1, albumin 3.2. CURRENT INPATIENT MEDICATIONS: The patient's medications are all reviewed by me. I have stopped patient's trazodone at this time because it is an selective serotonin reuptake inhibitor (SSRI) and sometimes it can cause syndrome of inappropriate secretion of antidiuretic hormone (SIADH). She is getting Venofer 10 mg IV daily starting yesterday. ASSESSMENT: 66-year-old female with hyponatremia, hypertension, anemia and endstage anemia because of iron deficiency and chronically on PEG tube feeds because of history of tongue resection. PLAN: 1. Hyponatremia: The patient's sodium level is improving. It is up to 132 now. Continue the current PEG tube feed of Jevity 1.5, four cans daily. The patient is pending evaluation by the plant associate as well. With the current feeds, she will get more than 1400 kilocalories daily. It is okay for the patient to drink her coffee. The patient is on trazodone and she reported that she takes it to help with sleep. She denies any history of depression. The patient was advised to take other sleep medications apart from SSRI, which can cause SIADH. Continue the fluid restriction to around 1500 mL a day. 2. Hypertension: Blood pressure is acceptable at this time. Continue current dose of labetalol. 3. Iron deficiency anemia: Continue ferrous sulfate via PEG 300 mg daily and continue Venofer 100 mg IV daily for a total of 500 mg. Continue multivitamins as well. 4. Discharge planning: It is okay to discharge the patient from a nephrology standpoint. She needs to followup with nephrology within 2 weeks after discharge from the hospital. Plan of care was discussed with the hospitalist. Dr. Jerrica Pfeiffer.
[2017-04-19] MEDS ORDERED: PRED10TA2 PO (14:42)
[2017-04-19] MEDS ORDERED: PRED5TA PO (14:42)
[2017-04-19] MEDS ORDERED: PRED20TA PO ×2 (14:42)
--- NOTE | 2017-04-19 14:43 | DS.PDOC ---
Discharge Summary General Date of Admission Apr 17, 2017 at 16:59 Date of Discharge [address] Discharge Summary PROCEDURES PERFORMED DURING STAY: None ADMITTING DIAGNOSES: 1. Worsening of chronic hyponatremia 2. CP and SOB 3. Squamous cell carcinoma of floor of mouth 4. HTN 5. OA 6. hypothyroidism 7. Vit D Deficiency 8. Insominia DISCHARGE DIAGNOSES: 1. Acute on Chronic hyponatremia 2. CP 3. COPD exacerbation likely causing SOB 4. Squamous cell carcinoma of floor of mouth 5. OA 6. HTN 7. Hypothyroidism 8. Vit D Deficiency 9. Insominia COMPLICATIONS/CHIEF COMPLAINT: Hyponatremia. HISTORY OF PRESENT ILLNESS: 66 y/o female presented to ED w/ CC of SOB and CP and found to have worsening of chronic hyponatremia on presentation w/ Na level of 125. HOSPITAL COURSE: During the course of her hospital stay the pt. saw Nephrology , recommended limiting fluid intake to 12-1300 mL per day. The patient receives all of her nutrition from tube feeds but did prior to admission consume free water and coffee. Initially, the pt was changed from her usual Osmolite 1.25 5 cans daily to Jevity 1.5 4 cans daily with the reasoning to cut down on total volume of her tube feeding. However, after being seen by dietary, they felt she should go back to home feeds and decrease free water flushes. Dr. Howell approved of this, as long as her total fluid intake (TFs, flushes, PO) totaled less than 2L daily. She was also given sodium chloride tablets daily, with monitoring of her electrolytes for resolution of her hyponatremia. Urine studies were also ordered which effectively ruled out SIADH. The pt was also found to be more anemic than her baseline on presentation to ED and as such iron studies were ordered which pointed to Iron Def. and liquid iron was administered through tube feeds. The patient also has hx of adrenal resection, as such morning cortisol was ordered and found to be 27 and within acceptable limit. The pt was also given Venofer 500 mg IV for her iron deficiency anemia. Nephrology also recommended that she stop her trazodone. On Day of d/c the patients Na was 132, she was d/c with fluid restriction 1500 mL daily and instructions to follow up with PCP and Nephrology within one week of d.c. Pt was also started on solumederol inpt to help with SOB, improved w/ steroid and duo-neb use., as such we will prescribe pt with Prednisone on tapering dose. on d/c. Note that her total intake, with Tube feeds and flushes and PO intake should NOT exceed 2 L daily. DISCHARGE MEDICATIONS: Please see below. Error was made on med rec, saying trazodone should be continued when in fact it should be discontinued. Dr. Rizvi called the patient and spoke to her on the phone the afternoon of discharge, to clarify that trazodone should not be taken, as it can cause SIADH, she verbalized understanding and had no questions. ALLERGIES: Please see below. PHYSICAL EXAMINATION ON DISCHARGE: VITAL SIGNS: Please see below. GENERAL: pleasant, conversant, happy to be going home, states she feels well and would like some coffee HEENT: NCAT, PERRLA, EOMI, neck supple, trachea midline, nares patent b/l, no JVD CARDIOVASCULAR EXAMINATION: RRR, normal s1 and s2, no murmurs, rubs or gallops appreciated. RESPIRATORY EXAMINATION: diminshed throughout, good air expansion and effort, no wheezing, rales, crackles or rhonchi appreciated on exam ABDOMINAL EXAMINATION: nabsx4, no organomegaly, non-distended, no rebound ridgity or guarding, no tenderness to palpation EXTREMITIES: no clubbing, cyanosis or edema appreciated SKIN: intact NEUROLOGICAL EXAMINATION: no focal deficit appreciated PSYCHIATRIC EXAMINATION: normal affect, approproaite mood LABORATORY DATA: Please see below. IMAGING: CTA Chest 04-17-17 IMPRESSION: 1. There is no pulmonary embolism. 2. There are small areas of atelectasis or infiltrate in the lower lobes. 3. 1.1 cm liver cyst. 4. There are two cysts in the left kidney CXR 04-17-17 Impression: No acute disease. PROGNOSIS: stable ACTIVITY: As tolerated DIET: Tube feeds, pt will resume home feeds of 1.2, 5 dans daily Osmollite DISCHARGE PLAN: D/C to home. Pt was instructed to stop taking her home medication Trazodone as it can cause SIADH, she verbalized understanding and had no questions. DISPOSITION: Stable DISCHARGE INSTRUCTIONS: 1. F/u with Neoprhology within one week of d.c 2. F/u with PCP within one week of d.c 3. DO NOT EXCEED 2 L DAILY FLUID INTAKE ( tube feeds, free water flushes and PO intake) 4. Pt was instructed to stop taking her home medication Trazodone as it can cause SIADH, she verbalized understanding and had no questions. ITEMS TO FOLLOWUP ON ON OUTPATIENT: 1. F/u with Neoprhology within one week of d.c 2. F/u with PCP within one week of d.c DISCHARGE CONDITION: Stable TIME SPENT ON DISCHARGE: Greater than 30 minutes. Vital Signs/I&Os Vital Signs Date Time Temp Pulse Resp B/P (MAP) Pulse Ox O2 Delivery O2 Flow Rate FiO2 04/19/17 10:47 Room Air 04/19/17 09:00 71 114/61 04/19/17 07:29 16 04/19/17 06:00 97.7 96 I&O- Last 24 Hours up to 6 AM 04/19/17 06:00 Intake Total 1064 ml Output Total 1700 ml Balance -636 ml Laboratory Data Labs 24H Laboratory Tests 2 04/19/17 05:34: Anion Gap 10, Glomerular Filtration Rate 37.8L, Blood Urea Nitrogen 57H, Creatinine 1.48H, Sodium Level 132L, Potassium Level 4.1, Chloride Level 95L, Carbon Dioxide Level 27, Calcium Level 10.1, Phosphorus Level 4.2, Magnesium Level 2.5H, C-Reactive Protein, Quantitative 9.61H, Albumin 3.2 CBC/BMP Laboratory Tests 04/19/17 05:34 Calcium Level 10.1 Microbiology Microbiology 04/17/17 Blood Culture - Preliminary, Resulted No Growth after 48 hours. All Specime... 04/17/17 Respiratory Virus Panel (PCR) (CARLOS) - Final, Complete Discharge Medications Scheduled (Magonate) 1,000 Mg/5 Ml Liq, 10 ML GT DAILY, (Reported) (Osmolite 1.2 Surya) 1 Liq Liq, 1 LIQ GT 5XD, (Reported) (Thermotabs) 1 Tab Tab, 1 TAB GT QHS, (Reported) Biotin (Vitamin H) (Biotin) 1,000 Mcg Tab, 5,000 MCG GT DAILY, (Reported) Diphenhydramine HCl (Benadryl Allergy) 25 Mg Cap, 25 MG GT QHS, (Reported) Labetalol HCl (Labetalol HCl) 200 Mg Tab, 200 MG GT BID, (Reported) Levothyroxine Sodium (Synthroid) 25 Mcg Tab, 25 MCG GT QAM, (Reported) Ondansetron HCl (Zofran) 4 Mg/5 Ml Tracey, 10 ML GT QAM, (Reported) Prednisone (Prednisone) 20 Mg Tab, 20 MG PO BID Prednisone (Prednisone) 10 Mg Tab, 10 MG PO DAILY Prednisone (Prednisone) 20 Mg Tab, 20 MG PO DAILY Prednisone (Prednisone) 20 Mg Tab, 20 MG PO DAILY Prednisone (Prednisone) 10 Mg Tab, 10 MG PO DAILY Prednisone (Prednisone) 5 Mg Tab, 5 MG PO DAILY Salmeterol/Fluticasone (Advair Diskus 250-50 Mcg/Dose) 14 Puff/Inhaler Aerp, 1 PUFF INH BID, (Reported) Trazodone HCl (Trazodone HCl) 50 Mg Tab, 50 MG GT QHS, (Reported) Vitamin D (Vitamin D) 2,000 Unit Cap, 2,000 UNIT GT DAILY, (Reported) Scheduled PRN Acetaminophen/Codeine (Acetaminophen/Codeine 300-30 mg) 1 Tab Tab, 1 TAB GT TIDP PRN for PAIN, (Reported) Albuterol Sulfate (Ventolin Hfa) 200 Puff/8 Gm Aers, 2 PUFF INH BID PRN for SHORTNESS OF BREATH, (Reported) Bacitracin/Polymyxin B (Polysporin 500-93232 Unit/gm) 1 Oin Oin, 0 TOP PRN PRN for REDNESS/IRRITATION, (Reported) APPLY AROUND PEG TUBE Allergies Coded Allergies: No Known Drug Allergy (Verified Allergy, Unknown, 12/07/16) GME ATTESTATION GME ATTESTATION My preceptor for this patient encounter was physically present in the building during the encounter and was fully available. As needed, all aspects of the patient interview, examination, medical decision making process, and medical care plan development were reviewed and approved by the preceptor. Preceptor is aware and concurs with the plan as stated in the body of this note and will attest to such by his/her cosignature. TITUS RIZVI DO Apr 19, 2017 14:43 REMBERTO DICKSON Apr 23, 2017 13:31
== END 2017-04-19 16:19 | disposition home or self-care (01) | DRG 641 ==
LOC: M ED 12:20 → M ED INP 16:59 → M PCU 18:42 → M MSPAV 04-18 18:22
PROVIDERS: ADMIT Internal Medicine; ATTEND Hospitalist
DX: E87.1 Hypo-osmolality and hyponatremia (principal); J44.1 Chronic obstructive pulmonary disease with (acute) exacerbation; E89.6 Postprocedural adrenocortical (-medullary) hypofunction; M19.90 Unspecified osteoarthritis, unspecified site; I12.9 Hypertensive chronic kidney disease with stage 1 through stage 4 chronic kidney disease, or unspecified chronic kidney disease; E03.9 Hypothyroidism, unspecified; E55.9 Vitamin D deficiency, unspecified; D50.9 Iron deficiency anemia, unspecified; N18.3 Chronic kidney disease, stage 3 (moderate); G47.00 Insomnia, unspecified; Z79.52 Long term (current) use of systemic steroids; Z79.899 Other long term (current) drug therapy; Z93.1 Gastrostomy status; Z85.828 Personal history of other malignant neoplasm of skin; Z98.51 Tubal ligation status; Z87.891 Personal history of nicotine dependence

== ENCOUNTER → 2017-04-26 | Outpatient (CLI) | payer MEDICARE, OTHER ==
[~2017-04-26] MED LIST changes: +PRED10TA2 PO; +PRED20TA PO; +PRED5TA PO; +THERTAB GT
[2017-04-26 18:09] LABS: ALBUMIN 3.9 GM/DL (3.2-5.2); BILIRUBIN,TOTAL 0.3 MG/DL (0.2-1.0); CALCIUM LEVEL 10.1 MG/DL (8.8-10.2); CREATININE FOR GFR 1.67 MG/DL (0.55-1.02); GLOMERULAR FILTRATION RATE 32.9 (>45); THYROXINE (T4) 9.3 UG/DL (4.5-12.0); TOTAL PROTEIN 7.8 GM/DL (6.4-8.2)
[2017-04-26 18:16] LABS: POTASSIUM SERUM 5.3 MEQ/L (3.5-5.1)
[2017-04-26 18:54] LABS: MEAN CORPUSCULAR HEMOGLOBIN 32.1 pg (27.0-33.0); MEAN CORPUSCULAR HGB CONC 32.3 g/dl (32.0-36.5); MEAN CORPUSCULAR VOLUME 99.2 fl (80.0-96.0); RED CELL DISTRIBUTION WIDTH 14.5 % (11.5-14.5)
[2017-04-26 22:03] LABS: EOSINOPHILS 1 % (0-5)
[2017-04-26 22:04] LABS: HYPOCHROMASIA 1+
[2017-04-26 22:05] LABS: ANISOCYTOSIS 1+
== END ==
LOC: M WUC 11:39
PROVIDERS: ATTEND Family Medicine
DX: D64.9 Anemia, unspecified (principal); E03.9 Hypothyroidism, unspecified

== ENCOUNTER → 2017-08-23 | Outpatient (CLI) | payer MEDICARE, OTHER ==
[2017-08-23 19:19] LABS: MEAN CORPUSCULAR HEMOGLOBIN 31.5 pg (27.0-33.0); MEAN CORPUSCULAR VOLUME 98.2 fl (80.0-96.0); PLATELET COUNT, AUTOMATED 316 10^3/uL (150-450); RED CELL DISTRIBUTION WIDTH 14.2 % (11.5-14.5); WHITE BLOOD COUNT 4.5 10^3/uL (4.0-10.0)
[2017-08-23 20:31] LABS: ALBUMIN 3.9 GM/DL (3.2-5.2); CALCIUM LEVEL 9.8 MG/DL (8.8-10.2); CREATININE FOR GFR 1.71 MG/DL (0.55-1.02); GLOMERULAR FILTRATION RATE 31.9 (>45); MAGNESIUM LEVEL 1.9 MG/DL (1.8-2.4); PHOSPHORUS LEVEL 4.1 MG/DL (2.5-4.9)
== END ==
LOC: M WUC 12:26
PROVIDERS: ATTEND Internal Medicine Nephrology
DX: N18.3 Chronic kidney disease, stage 3 (moderate) (principal); D50.9 Iron deficiency anemia, unspecified; E87.1 Hypo-osmolality and hyponatremia; E83.42 Hypomagnesemia

== ENCOUNTER → 2017-10-05 | Outpatient (CLI) | payer MEDICARE, OTHER ==
[2017-10-05 13:59] LABS: BASO % 0.5 % (0.0-1.0); EOS # 0.2 10^3/uL (0.0-0.50); EOS % 4.3 % (0.0-3.0); HEMATOCRIT 32.3 % (36.0-47.0); HEMOGLOBIN 10.6 g/dl (12.0-16.0); IMMATURE GRANULOCYTE % 0.5 % (0-0); LYMPH # 0.7 10^3/uL (1.5-4.5); LYMPH % 16.8 % (24.0-44.0); MEAN CORPUSCULAR HEMOGLOBIN 31.5 pg (27.0-33.0); MEAN CORPUSCULAR HGB CONC 32.8 g/dl (32.0-36.5); MEAN CORPUSCULAR VOLUME 96.1 fl (80.0-96.0); MONO # 0.4 10^3/uL (0.0-0.8); MONO % 8.9 % (0.0-5.0); PLATELET COUNT, AUTOMATED 270 10^3/uL (150-450); RED BLOOD COUNT 3.36 10^6/uL (4.00-5.40); RED CELL DISTRIBUTION WIDTH 14.1 % (11.5-14.5); WHITE BLOOD COUNT 4.4 10^3/uL (4.0-10.0)
[2017-10-05 14:02] LABS: ALBUMIN 3.7 GM/DL (3.2-5.2); ANION GAP 4 MEQ/L (8-16); BLOOD UREA NITROGEN 36 MG/DL (7-18); CALCIUM LEVEL 9.5 MG/DL (8.8-10.2); CARBON DIOXIDE LEVEL 32 MEQ/L (21-32); CHLORIDE LEVEL 100 MEQ/L (98-107); CREATININE FOR GFR 1.68 MG/DL (0.55-1.02); GLOMERULAR FILTRATION RATE 32.6 (>45); GLUCOSE, FASTING 69 MG/DL (80-110); SODIUM LEVEL 136 MEQ/L (136-145)
[2017-10-05 14:04] LABS: POTASSIUM SERUM 5.2 MEQ/L (3.5-5.1)
== END ==
LOC: M WUC 10:36
DX: N18.3 Chronic kidney disease, stage 3 (moderate) (principal); D50.9 Iron deficiency anemia, unspecified; E87.1 Hypo-osmolality and hyponatremia; E83.42 Hypomagnesemia

== ENCOUNTER → 2017-10-05 | Outpatient (CLI) | payer MEDICARE, OTHER ==
[2017-10-05 13:56] LABS: BASO % 0.7 % (0.0-1.0); EOS # 0.2 10^3/uL (0.0-0.50); HEMOGLOBIN 10.6 g/dl (12.0-16.0); IMMATURE GRANULOCYTE % 0.5 % (0-0); LYMPH # 0.7 10^3/uL (1.5-4.5); LYMPH % 17.3 % (24.0-44.0); MEAN CORPUSCULAR HEMOGLOBIN 31.9 pg (27.0-33.0); MEAN CORPUSCULAR HGB CONC 33.1 g/dl (32.0-36.5); MEAN CORPUSCULAR VOLUME 96.4 fl (80.0-96.0); MONO # 0.4 10^3/uL (0.0-0.8); MONO % 8.7 % (0.0-5.0); NEUTROPHILS # 2.9 10^3/uL (1.8-7.7); NEUTROPHILS % 68.8 % (36.0-66.0); PLATELET COUNT, AUTOMATED 267 10^3/uL (150-450); RED BLOOD COUNT 3.32 10^6/uL (4.00-5.40); RED CELL DISTRIBUTION WIDTH 14.2 % (11.5-14.5); WHITE BLOOD COUNT 4.3 10^3/uL (4.0-10.0)
[2017-10-05 14:16] LABS: TOTAL 25(OH) VITAMIN D 68.5 NG/ML (30.0-100.0)
[2017-10-05 14:30] LABS: ALBUMIN 3.8 GM/DL (3.2-5.2); ALBUMIN/GLOBULIN RATIO 1.12 (1.00-1.93); ALKALINE PHOSPHATASE 129 U/L (45-117); ALT/SGPT 27 U/L (12-78); ANION GAP 6 MEQ/L (8-16); AST/SGOT 22 U/L (7-37); BILIRUBIN,TOTAL 0.4 MG/DL (0.2-1.0); BLOOD UREA NITROGEN 35 MG/DL (7-18); CALCIUM LEVEL 9.4 MG/DL (8.8-10.2); CARBON DIOXIDE LEVEL 30 MEQ/L (21-32); CHLORIDE LEVEL 101 MEQ/L (98-107); CREATININE FOR GFR 1.66 MG/DL (0.55-1.02); GLUCOSE, FASTING 68 MG/DL (80-110); MAGNESIUM LEVEL 1.9 MG/DL (1.8-2.4); SODIUM LEVEL 137 MEQ/L (136-145); TOTAL PROTEIN 7.2 GM/DL (6.4-8.2)
[2017-10-05 14:33] LABS: POTASSIUM SERUM 5.2 MEQ/L (3.5-5.1)
== END ==
LOC: M WUC 10:39
DX: D64.81 Anemia due to antineoplastic chemotherapy (principal); I12.9 Hypertensive chronic kidney disease with stage 1 through stage 4 chronic kidney disease, or unspecified chronic kidney disease; E03.9 Hypothyroidism, unspecified; E55.9 Vitamin D deficiency, unspecified; N18.3 Chronic kidney disease, stage 3 (moderate); D50.9 Iron deficiency anemia, unspecified; E87.1 Hypo-osmolality and hyponatremia
CPT/HCPCS: 83735

== ENCOUNTER → 2018-01-05 | Outpatient (CLI) | payer MEDICARE, OTHER ==
[2018-01-05 16:48] LABS: BASO % 0.5 % (0.0-1.0); EOS # 0.1 10^3/uL (0.0-0.50); EOS % 3.3 % (0.0-3.0); HEMATOCRIT 30.8 % (36.0-47.0); IMMATURE GRANULOCYTE % 0.3 % (0-3.0); LYMPH # 0.7 10^3/uL (1.5-4.5); LYMPH % 17.1 % (24.0-44.0); MEAN CORPUSCULAR HEMOGLOBIN 32.1 pg (27.0-33.0); MEAN CORPUSCULAR HGB CONC 32.5 g/dl (32.0-36.5); MEAN CORPUSCULAR VOLUME 98.7 fl (80.0-96.0); MONO # 0.4 10^3/uL (0.0-0.8); MONO % 10.3 % (0.0-5.0); NEUTROPHILS # 2.7 10^3/uL (1.8-7.7); NEUTROPHILS % 68.5 % (36.0-66.0); PLATELET COUNT, AUTOMATED 280 10^3/uL (150-450); RED BLOOD COUNT 3.12 10^6/uL (4.00-5.40); RED CELL DISTRIBUTION WIDTH 14.1 % (11.5-14.5)
[2018-01-05 17:18] LABS: ALBUMIN 3.8 GM/DL (3.2-5.2); ANION GAP 5 MEQ/L (8-16); BLOOD UREA NITROGEN 39 MG/DL (7-18); CALCIUM LEVEL 9.5 MG/DL (8.8-10.2); CARBON DIOXIDE LEVEL 31 MEQ/L (21-32); CHLORIDE LEVEL 103 MEQ/L (98-107); CREATININE FOR GFR 1.91 MG/DL (0.55-1.30); GLOMERULAR FILTRATION RATE 28.1 (>45); GLUCOSE, FASTING 73 MG/DL (70-100); MAGNESIUM LEVEL 2.1 MG/DL (1.8-2.4); PHOSPHORUS LEVEL 4.2 MG/DL (2.5-4.9); POTASSIUM SERUM 5.1 MEQ/L (3.5-5.1); SODIUM LEVEL 139 MEQ/L (136-145)
== END ==
LOC: M WUC 12:11
DX: N18.3 Chronic kidney disease, stage 3 (moderate) (principal); D50.9 Iron deficiency anemia, unspecified; E87.1 Hypo-osmolality and hyponatremia; E83.42 Hypomagnesemia
CPT/HCPCS: 83735

== ENCOUNTER → 2018-02-15 | Outpatient (CLI) | payer MEDICARE, OTHER ==
[2018-02-15 12:20] LABS: BASO % 0.5 % (0.0-1.0); EOS # 0.1 10^3/uL (0.0-0.50); EOS % 2.6 % (0.0-3.0); HEMATOCRIT 32.7 % (36.0-47.0); HEMOGLOBIN 10.7 g/dl (12.0-15.5); LYMPH # 0.7 10^3/uL (1.5-4.5); LYMPH % 19.1 % (24.0-44.0); MEAN CORPUSCULAR HEMOGLOBIN 31.9 pg (27.0-33.0); MEAN CORPUSCULAR HGB CONC 32.7 g/dl (32.0-36.5); MEAN CORPUSCULAR VOLUME 97.6 fl (80.0-96.0); MONO # 0.4 10^3/uL (0.0-0.8); MONO % 9.6 % (0.0-5.0); NEUTROPHILS # 2.6 10^3/uL (1.8-7.7); NEUTROPHILS % 68.2 % (36.0-66.0); PLATELET COUNT, AUTOMATED 274 10^3/uL (150-450); RED BLOOD COUNT 3.35 10^6/uL (4.00-5.40); RED CELL DISTRIBUTION WIDTH 13.7 % (11.5-14.5); WHITE BLOOD COUNT 3.9 10^3/uL (4.0-10.0)
[2018-02-15 12:35] LABS: ALBUMIN 3.6 GM/DL (3.2-5.2); ALKALINE PHOSPHATASE 143 U/L (45-117); ALT/SGPT 29 U/L (12-78); ANION GAP 3 MEQ/L (8-16); AST/SGOT 25 U/L (7-37); BILIRUBIN,TOTAL 0.3 MG/DL (0.2-1.0); BLOOD UREA NITROGEN 37 MG/DL (7-18); CALCIUM LEVEL 9.6 MG/DL (8.8-10.2); CARBON DIOXIDE LEVEL 31 MEQ/L (21-32); CHLORIDE LEVEL 102 MEQ/L (98-107); FERRITIN 446 NG/ML (8-252); GLOMERULAR FILTRATION RATE 30.1 (>45); GLUCOSE, FASTING 78 MG/DL (70-100); IRON (FE) 68 UG/DL (50-170); PERCENT SATURATION 25.2 % (13.2-45.0); SODIUM LEVEL 136 MEQ/L (136-145); THYROID STIMULATING HORMONE 0.366 uIU/ML (0.358-3.740); TOTAL IRON BINDING CAPACITY 270 UG/DL (250-450); TOTAL PROTEIN 7.2 GM/DL (6.4-8.2)
[2018-02-16 13:18] LABS: FOLATE > 24.0 NG/ML; VITAMIN B12 LEVEL 989 PG/ML
== END ==
LOC: M WUC 10:16
DX: D64.9 Anemia, unspecified (principal); E03.9 Hypothyroidism, unspecified; I10 Essential (primary) hypertension
CPT/HCPCS: 82746

== ENCOUNTER → 2018-05-24 | Outpatient (CLI) | payer MEDICARE, OTHER | LOC: M WHC 11:42 | DX: Z12.31 Encounter for screening mammogram for malignant neoplasm of breast (principal); Z78.0 Asymptomatic menopausal state; Z92.89 Personal history of other medical treatment; Z92.29 Personal history of other drug therapy | CPT/HCPCS: 77067 ==

== ENCOUNTER → 2018-06-19 | Outpatient (CLI) | payer MEDICARE, OTHER ==
[2018-06-19 09:17] LABS: BASO # 0.1 10^3/uL (0.0-0.2); EOS # 0.1 10^3/uL (0.0-0.50); EOS % 2.3 % (0.0-3.0); HEMATOCRIT 31.3 % (36.0-47.0); HEMOGLOBIN 10.4 g/dl (12.0-15.5); IMMATURE GRANULOCYTE % 0.4 % (0-3.0); LYMPH % 20.3 % (24.0-44.0); MEAN CORPUSCULAR HEMOGLOBIN 31.8 pg (27.0-33.0); MEAN CORPUSCULAR HGB CONC 33.2 g/dl (32.0-36.5); MEAN CORPUSCULAR VOLUME 95.7 fl (80.0-96.0); MONO # 0.5 10^3/uL (0.0-0.8); MONO % 9.7 % (0.0-5.0); NEUTROPHILS # 3.4 10^3/uL (1.8-7.7); NEUTROPHILS % 66.3 % (36.0-66.0); PLATELET COUNT, AUTOMATED 302 10^3/uL (150-450); RED BLOOD COUNT 3.27 10^6/uL (4.00-5.40); RED CELL DISTRIBUTION WIDTH 14.2 % (11.5-14.5); WHITE BLOOD COUNT 5.1 10^3/uL (4.0-10.0)
[2018-06-19 09:43] LABS: ALBUMIN 3.8 GM/DL (3.2-5.2); ALBUMIN/GLOBULIN RATIO 1.12 (1.00-1.93); ALKALINE PHOSPHATASE 137 U/L (45-117); ALT/SGPT 28 U/L (12-78); ANION GAP 9 MEQ/L (8-16); AST/SGOT 27 U/L (7-37); BILIRUBIN,TOTAL 0.3 MG/DL (0.2-1.0); BLOOD UREA NITROGEN 28 MG/DL (7-18); CALCIUM LEVEL 9.5 MG/DL (8.8-10.2); CARBON DIOXIDE LEVEL 30 MEQ/L (21-32); CHLORIDE LEVEL 100 MEQ/L (98-107); CREATININE FOR GFR 1.68 MG/DL (0.55-1.30); GLOMERULAR FILTRATION RATE 32.6 (>45); GLUCOSE, FASTING 74 MG/DL (70-100); POTASSIUM SERUM 4.6 MEQ/L (3.5-5.1); SODIUM LEVEL 139 MEQ/L (136-145); TOTAL PROTEIN 7.2 GM/DL (6.4-8.2)
== END ==
LOC: M WUC 08:21
DX: D64.9 Anemia, unspecified (principal); I12.9 Hypertensive chronic kidney disease with stage 1 through stage 4 chronic kidney disease, or unspecified chronic kidney disease
CPT/HCPCS: 80053